=== PATIENT | male | born 2000 | race Caucasian/White ===

== ENCOUNTER → 2025-01-10 12:28 | Outpatient (CLI) | payer OTHER, SELFPAY ==
--- NOTE | 2025-01-10 12:30 | DI.RAD.S_ITS ---
PROCEDURE: XR ANKLE RT MIN 3V INDICATIONS: Ankle pain TECHNIQUE: 3 views of the ankle were acquired. COMPARISON: None. FINDINGS: Bones: No fractures or dislocations. Ankle mortise is normally aligned. No suspicious bony lesions. Soft tissues: Moderate tibiotalar joint effusion. Achilles tendon appears normal. IMPRESSION: No acute bony abnormality. Moderate joint effusion. Internal derangement not excluded. Dictated by: Roland Ornelas M.D. on 01/10/2025 at 15:24 Approved by: Roland Ornelas M.D. on 01/10/2025 at 15:24
== END ==
PROVIDERS: Referring Provider Nurse Practitioner Family; Visit Provider Nurse Practitioner Family
DX: M25.571 Pain in right ankle and joints of right foot (principal); M25.471 Effusion, right ankle
CPT/HCPCS: 73610